=== PATIENT | female | born 1935 | race Caucasian/White ===

== ENCOUNTER 2016-08-10 10:41 | Emergency (ER) | payer MEDICARE, OTHER ==
[2016-08-10 14:36] LABS: EOS % 2.5 % (0.9-2.9); HEMATOCRIT 43.4 % (37.0-47.0); MEAN CELL VOLUME 89.1 fl (81.0-99.0); MEAN CORPUSCULAR HEMOGLOBIN 28.7 pg (27.0-31.0); MEAN CORPUSCULAR HGB CONC 32.3 g/dl (33.0-37.0); MEAN PLATELET VOLUME 9.4 fl (7.4-10.4); PLATELET COUNT 275 K/mm3 (130-400); RED CELL DISTRIBUTION WIDTH 13.6 % (11.5-14.5)
[2016-08-10 14:37] LABS: BASO % 0.4 % (0.2-1.0); EOS # 0.2 (0.0-0.5); IMM NEUT # 4.8 K/mm3 (0-0.2); IMM NEUT% 0.4 % (0-1); LYMPH # 1.9 (1.0-4.8); LYMPH % 25.4 % (15-45); MONO # 0.6 (0.0-0.8); MONO % 7.3 % (4-12)
[2016-08-10 14:39] LABS: CALCIUM 9.4 mg/dL (8.6-10.3)
[2016-08-10 14:40] LABS: ALB/GLOB RATIO 1.3 (>1.0); ALBUMIN 4.1 gm/dL (3.5-5.7)
[2016-08-10 14:41] LABS: CKMB ISOENZYME 0.8 ng/ml (0.6-6.3); TROPONIN I < 0.01 ng/ml (0.0-0.06)
--- NOTE | 2016-08-10 22:03 | RAD ---
08/10/2016 2:21 PM CHEST - 2 VIEWS History: Syncope Comparison: None Findings: Two views of the chest are obtained. The lungs demonstrate some probable patchy atelectasis at the left peripheral base. The cardiomediastinal silhouette is unremarkable.. The osseous structures are intact.. Surgical clips are noted in the right axilla. IMPRESSION: Patchy atelectasis at the left peripheral base. Other findings as above.
== END 2016-08-10 14:34 | disposition home or self-care (01) ==
LOC: ED 10:41
DX: R55 Syncope and collapse (principal); I10 Essential (primary) hypertension; E03.9 Hypothyroidism, unspecified; W19.XXXA Unspecified fall, initial encounter; Y92.008 Other place in unspecified non-institutional (private) residence as the place of occurrence of the external cause